=== PATIENT | male | born 1965 | race Two or more races ===

== ENCOUNTER 2022-10-05 14:52 | Emergency (ER) | payer OTHER | END 2022-10-05 17:10 | disposition home or self-care (01) | LOC: FB.ED 14:52 | DX: S63.92XA Sprain of unspecified part of left wrist and hand, initial encounter (principal); V18.0XXA Pedal cycle driver injured in noncollision transport accident in nontraffic accident, initial encounter; Y92.410 Unspecified street and highway as the place of occurrence of the external cause | CPT/HCPCS: 73110-LT; 73130-LT; 99283 ==